=== PATIENT | female | born 1945 | race Caucasian/White ===

== ENCOUNTER 2022-03-17 08:00 | Outpatient (CLI) | payer BC ==
[~2022-03-17] VITALS: Ht 165.1 cm; Wt 66.7 kg
[2022-03-18] MEDS ORDERED: ceFAZolin SODIUM 2 GM in D5W 50 ML IV ONE (07:00)
[2022-03-18] MEDS ORDERED: LIDOCAINE 1% 10 MG/ML, 20 ML MDV INJ ONE (12:00)
[2022-03-18] MEDS ORDERED: LR 1,000 ML IV.SOLN IV ONE (12:00)
[2022-03-18] MEDS ORDERED: NS IRRIG SOLN 1000 ML IR ONE (12:00)
[2022-03-18] MEDS ORDERED: MIDAZOLAM HCL 5 MG/5 ML VIAL IVP ONE (12:00)
[2022-03-18] MEDS ORDERED: LIDOCAINE 2%, 20 ML MDV INJ ONE (12:00)
[2022-03-18] MEDS ORDERED: BUPIVACAINE /EPINEPHRINE/PF 0.25% 30 ML VIAL INJ ONE (12:00)
[2022-03-18] MEDS ORDERED: PROPOFOL 200MG/ 20ML VIAL (DIPRIVAN) IV ONE (12:00)
[2022-03-18] MEDS ORDERED: MEPERIDINE HCL/PF 25 MG/ML DISP.SYRIN IVP PRN (12:45)
[2022-03-18] MEDS ORDERED: METOCLOPRAMIDE HCL 10 MG/2 ML VIAL IVP PRN (12:45)
[2022-03-18] MEDS ORDERED: LR 1,000 ML IV SCH (12:45)
[2022-03-18] MEDS ORDERED: HYDROmorphone 1 MG/ML INJ. CARTRIDGE IVP PRN ×2 (12:45)
[2022-03-18] MEDS ORDERED: ACETAMINOPHEN I.V. 1000 MG 100 ML IV ONE ×2 (13:09→13:15)
[2022-03-18] MEDS ORDERED: HYDR-3917 PO (13:20)
[2022-03-18 14:53] VITALS: BP_SYST 125
== END 2022-03-17 17:00 | disposition home or self-care (01) ==
LOC: SLB 08:00 → EDSTATUS 03-18 12:00
PROVIDERS: ATTEND Orthopaedic Surgery Sports Medicine
DX: S40.851A Superficial foreign body of right upper arm, initial encounter (principal); G43.909 Migraine, unspecified, not intractable, without status migrainosus; Z85.3 Personal history of malignant neoplasm of breast; W19.XXXA Unspecified fall, initial encounter; Y93.89 Activity, other specified; Y92.89 Other specified places as the place of occurrence of the external cause; Y99.8 Other external cause status; Z79.899 Other long term (current) drug therapy; Z20.822 Contact with and (suspected) exposure to COVID-19
CPT/HCPCS: 36415; 87070; 87070-TC; 87075-TC; 88300; J0131; J2001; J2250; J2704; J3490; J7060; J7120

== ENCOUNTER 2022-12-12 19:39 | Emergency (ER) | payer BC, MEDICAID ==
[~2022-12-12] VITALS: Ht 167.6 cm; Wt 63.5 kg
[~2022-12-12 19:39] MED LIST: HYDR-3917 PO
[2022-12-12 19:46] VITALS: BP_SYST 141; PULSE 76; RESP 18; TEMP 97.8; O2SAT 97
[2022-12-12] MEDS ORDERED: HYDROcodone/ACETAMIN 5-325 MG TAB (NORCO/ VICODIN) PO ONE (22:45)
[2022-12-12] MEDS ORDERED: HYDR-3917 PO (22:52)
[2022-12-12 23:04] VITALS: BP_SYST 141; PULSE 76; RESP 18; TEMP 97.8; O2SAT 97
== END 2022-12-12 23:04 | disposition home or self-care (01) ==
LOC: SED 19:39
DX: S43.401A Unspecified sprain of right shoulder joint, initial encounter (principal); S09.90XA Unspecified injury of head, initial encounter; Z85.3 Personal history of malignant neoplasm of breast; Z79.899 Other long term (current) drug therapy; W01.0XXA Fall on same level from slipping, tripping and stumbling without subsequent striking against object, initial encounter; Y93.89 Activity, other specified; Y92.89 Other specified places as the place of occurrence of the external cause; Y99.8 Other external cause status
CPT/HCPCS: 70450-TC; 73030; 73502; 76376; 99284